=== PATIENT | female | born 1980 ===

== ENCOUNTER 2017-03-21 05:31 | Observation (INO) | payer OTHER ==
--- NOTE | 2017-03-20 21:36 | PDGENHP ---
History and Physical History and Physical: Assessment and Plan: 1. Dysmenorrhea Susie has a long history of pelvic pain and painful menses highly suggestive of endometriosis. Her intraoperative photos are suggestive of endometriosis as well as scarring. We previously discussed conservative and surgical options. She is scheduled for a robotic hysterectomy with excision of endometriosis and possible bilateral salpingo-oophorectomy. The risks benefits and alternatives were presented and informed consent was obtained. 2. Dyspareunia, female 3. Menorrhagia with regular cycle Subjective: Patient ID: Susie Allison is a 36 y.o. female who presents to [facility] for dysmenorrhea. MYKE Richards is a 36-year-old para 2 woman using vasectomy for contraception. She has a multiyear history of deep dyspareunia and dysmenorrhea. Her menses have always been painful. She was started on control pills at the age of 13. Currently her cycles are every 24-25 days. She will bleed 5-7 days. Her flow is somewhat normal however she passes clots. She has severe pelvic pain beginning the day before her flow and continues through cycle day 2. She also has severe pelvic pain with ovulation. The pain seems to be somewhat worse on the left than the right. It feels like a dull ache with sharp intense pains lasting from 2-24 hours. There is no radiation. In mid December she underwent a diagnostic laparoscopy. I have reviewed the intraoperative photos. The uterus is retroflexed. The anterior and posterior cul-de-sacs were not well photographed however there there appears to be significant contraction of the peritoneum in the posterior cul-de-sac and along the uterosacral ligaments highly suggestive of endometriosis. There appears to be a small lesion on the right ovary. The uterus appears to have adenomyosis with possible white endometriosis on the posterior surface. She has been seeing Dr. Prakash Prasadfor interstitial cystitis. She has been undergoing bladder instillations which appears to be helping she also is on Uriblel twice a day. She actually discontinued it about 10 days ago and so far is doing well. Alicias been suffering from her pain for many years. She has tried control pills which only mildly help her symptoms. She tried Lupron which she did not tolerate. She has completed her childbearing. Her symptoms and operative photos are highly suggestive of deep endometriosis especially in the posterior cul-de-sac,surrounding the cervix,and uterosacral ligaments. She also likely has adenomyosis. We reviewed all conservative and surgical options. At the end of our discussion she is interested in surgical management which will include a robotic hysterectomy, excision of all endometriosis, and likely BSO. She has no stress urinary incontinence. I will see her for a preoperative appointment. PastMedicalHistory Past Medical History: Diagnosis Date Breast disorder Right breast duct removed Chronic pelvic pain in female Dyspareunia in female Inflammation of bladder URINARY BLADDER SINCE Mandibular dysfunction TMJ Urinary tract infection Varicella PastSurgicalHistory Past Surgical History: Procedure Laterality Date ANTERIOR CRUCIATE LIGAMENT REPAIR Left 1995. 1999, 2003 CYST REMOVAL 1999 from nasal cavity NIPPLE DUCT EXCISION Right 07/05/2016 PELVIC LAPAROSCOPY rhinoplasty 2002 TONSILLECTOMY as child CURRENT MEDICATIONS: Current Outpatient Prescriptions Medication Sig BACILLUS COAGULANS/INULIN (PROBIOTIC WITH PREBIOTIC PO) BORIC ACID MISC Place 1 Dose rectally daily. HYDROcodone-acetaminophen (NORCO) 5-325 mg Take 1-2 tablets by mouth every 4 hours as needed (Moderate to Severe Pain) for Acute Pain. This med has acetaminophen (APAP). hydrOXYzine HCL (ATARAX) 10 mg tablet TK 1 T PO HS FOR 30 DAYS LACTOBACILLUS ACIDOPHILUS (PROBIOTIC PO) methen-sod phos-meth blue-hyos (URO-BLUE) 81.6-40.8-0.12 mg Tab Take 1 tablet by mouth 2 times daily. multivitamin (HEXAVITAMIN) per tablet Take 1 tablet by mouth daily. UNABLE TO FIND Place 1 Dose rectally every evening. VALIUM SUPPOSITORY NOT SURE OF DOSE UNKNOWN TO PATIENT Take 1 Dose by mouth daily. ANTIHISTAMINE No current facility-administered medications for this visit. ALLERGIES: No known drug allergies I have reviewed, verified and agree with the past medical, surgical, , family, social and ROS history as documented by the RN today. Objective: Vital Signs: Visit Vitals BP 102/66 Pulse 84 Temp 37.1 C (98.7 F) (Temporal Artery) Resp 16 Ht 1.822 m (5' 11.75") Wt 67.1 kg (148 lb) SpO2 98% BMI 20.21 kg/m Physical Exam Gen: This is an alert, well developed woman in no distress. Neuro: She moves all extremities. Psych: She is appropriate, oriented, with normal affect. Neck: No thyroid enlargement, adenopathy, or tenderness. Lungs: Clear to ascultation, no wheezes or rales. Heart: Regular rate and rhythm without obvious murmurs. Abdomen: Soft, non-tender, without guarding, rebound, or masses. Extremities: No edema or cyanosis. Pelvic: Normal external genitalia. Non-gaping introitus, vagina without discharge, adequately estrogenized, no significant prolapse. Cervix without lesions or discharge. Uterus normal sized, retroflexed with reduced mobility. She appears to have a tender nodule on the left uterosacral ligament near the cervix. The posterior cul-de-sac is tender. DATA: I have reviewed the pertinent medical records. TIME/COMMUNICATION: I personally spent a total of 60 minutes. Of that 40 minutes was counseling/ coordination of patient's care. See my note above for details. Laci Iglesias MD Board Certified Female Pelvic Medicine and Reconstructive Surgery Director of Minimally Invasive Gynecologic Surgery, [facility] Surgeon in Minimally Invasive Gynecologic Surgery [facility] Surgeon in Robotic Surgery
[2017-03-21] MEDS ORDERED: ceFAZolin 2 GM/SWFI 2 GM/20 ML SYR IVP ONE (06:14)
[2017-03-21] MEDS ORDERED: PHENAZOPYRIDINE HCL 100 MG TAB PO ONE (06:14)
[2017-03-21] MEDS ORDERED: LR 1,000 ML IV ONE (06:15)
[2017-03-21] MEDS ORDERED: LIDOCAINE 1% 2 ML INJ ID PRN (06:15)
[2017-03-21] MEDS ORDERED: PHENAZOPYRIDINE HCL 200 MG TAB ONE ×2 (06:27→06:48)
[2017-03-21] MEDS ORDERED: BUPIVACAINE 0.5% 30 ML SDV ONE (06:56)
[2017-03-21] MEDS ORDERED: PROPOFOL 200 MG/20 ML VIAL ONE (06:57)
[2017-03-21] MEDS ORDERED: MIDAZOLAM 2 MG/2 ML VIAL IVP ONE (06:57)
[2017-03-21] MEDS ORDERED: fentaNYL 100 MCG/2 ML INJ ONE ×4 (06:57→09:54)
--- NOTE | 2017-03-21 07:00 | PDANEPAE ---
ANE History of Present Illness Endometriosis ANE Past Medical History - Cardiovascular History Hx Hypertension: No Hx Arrhythmias: No Hx Chest Pain: No Hx Coronary Artery / Peripheral Vascular Disease: No Hx CHF / Valvular Disease: No Hx Palpitations: No - Pulmonary History Hx COPD: No Hx Asthma/Reactive Airway Disease: No Hx Recent Upper Respiratory Infection: No Hx Oxygen in Use at Home: No Hx Sleep Apnea: No Sleep Apnea Screening Result - Last Documented: Negative - Endocrine History Hx Diabetes: No - Renal History Hx Renal Disorders: Yes Renal History Comment: INTERSTIAL CYSTITIS - Liver History Hx Hepatic Disorders: No - Neurological & Psychiatric Hx Hx Neurological and Psychiatric Disorders: No - Cancer History Hx Cancer: No - Congenital Disorder History Hx Congenital Disorders: No - GI History Hx Gastrointestinal Disorders: No - Other Health History Other Health History: NONE - Chronic Pain History Chronic Pain: Yes (BLADDER,) - Surgical History Prior Surgeries: 2017,BREAST DUCTECTOMY. DIAGNOSTIC LAP ANE Review of Systems Review of Systems: - Exercise capacity METS (RN): 5 METS ANE Patient History - Allergies Allergies/Adverse Reactions: No Known Allergies Allergy (Verified 03/09/17 10:36) - Home Medications Home medications: home medication list seen and reviewed Home Medications: Herbals/Supplements -Info Only 1 ea PO DAILY 03/07/17 [Last Taken 03/16/17] Multivitamins [Multivitamin (*)] 1 each PO DAILY 03/07/17 [Last Taken 03/16/17] - Smoking Hx Smoking Status: Never smoked - Family Anes Hx Family Hx Anesthesia Complications: NONE ANE Labs/Vital Signs - Vital Signs Blood Pressure: 108/68 Heart Rate: 68 Respiratory Rate: 16 O2 Sat (%): 98 Height: 182.88 cm Weight: 65.771 kg ANE Physical Exam - Airway Neck exam: FROM Mallampati Score: Class 1 Mouth exam: normal dental/mouth exam - Pulmonary Pulmonary: no respiratory distress - Cardiovascular Cardiovascular: regular rate and rhythym - ASA Status ASA Status: II ANE Anesthesia Plan Anesthesia Plan: general endotracheal anesthesia
[2017-03-21] MEDS ORDERED: LIDOCAINE 2% 5 ML SDV ONE (07:40)
[2017-03-21] MEDS ORDERED: ROCURONIUM 50 MG/5 ML VIAL ONE ×2 (07:40→07:58)
[2017-03-21] MEDS ORDERED: DEXAMETHASONE 4 MG/ML VIAL ONE (07:40)
[2017-03-21] MEDS ORDERED: ONDANSETRON 4 MG/2 ML VIAL ONE (08:38)
[2017-03-21] MEDS ORDERED: SUGAMMADEX SODIUM 200 MG/2 ML VIAL IVP ONE (08:38)
[2017-03-21] MEDS ORDERED: HYDROmorphONE/DILAUDID 1 MG/ML INJ IVP PRN (08:57)
[2017-03-21] MEDS ORDERED: ONDANSETRON 4 MG/2 ML VIAL IVP PRN (08:57)
[2017-03-21] MEDS ORDERED: PROMETHAZINE HCL 25 MG/ML INJ IVP PRN ×2 (08:57→09:32)
[2017-03-21] MEDS ORDERED: NALOXONE HCL 0.4 MG/ML INJ IVP PRN (08:57)
--- NOTE | 2017-03-21 09:20 | POSTANESTH ---
Post Anesthetic Evaluation Cardiovascular Status: Normal, Stable Respiratory Status: Normal, Stable Level of Consciousness/Mental Status: Alert and Oriented, Mildly Sleepy, Arousable Pain Control: Adequate, Prn Tx Ordered Nausea/Vomiting Control: Adequate, Prn Tx Ordered Complications Possibly Related to Anesthesia: None Noted
[2017-03-21] MEDS ORDERED: DIAZEPAM 10 MG/2 ML SYR IVP PRN (09:32)
--- NOTE | 2017-03-21 09:32 | POSTOPPROG ---
Post Op Note Date of Operation: 03/21/17 Surgeon: Laci Iglesias Powder Guard: Radha Iraheta Anesthesia: GET(General Endotracheal) Pre-op Diagnosis: Dysmenorrhea, endometriosis Post-op Diagnosis: Same Procedure: Robotic hyst/LSO, bilat ureterolysis, excision of endo, cysto Findings: Endo, both ureters function at end of case Inf/Abcess present in the surg proc area at time of surgery?: No EBL: Minimal Complications: None Specimen(s): Uterus, bilat tubes, left ovary Peritoneum with endo
[2017-03-21] MEDS ORDERED: HYDROmorphONE/DILAUDID 1 MG/ML INJ ONE (09:44)
[2017-03-21] MEDS: HYDROmorphONE/DILAUDID 1 MG/ML INJ IVP PRN ×2 (09:45→11:02)
[2017-03-21] MEDS: fentaNYL 100 MCG/2 ML INJ IVP PRN ×2 (09:55→10:00)
[2017-03-21] MEDS ORDERED: LR 1,000 ML IV SCH (10:00)
[2017-03-21] MEDS: KETOROLAC 30 MG/1 ML SDV IVP SCH ×3 (10:06→21:55)
[2017-03-21] MEDS ORDERED: KETOROLAC 30 MG/1 ML SDV ONE (10:06)
[2017-03-21] MEDS ORDERED: DIAZEPAM 10 MG/2 ML SYR ONE (10:14)
--- NOTE | 2017-03-21 11:01 | GOP ---
[f rep st] OPERATIVE REPORT DATE OF OPERATION: 03/21/2017 SURGEON: Laci Iglesias MD FIELD ASSOCIATE: Radha Iraheta CFA ANESTHESIA: General. PREOPERATIVE DIAGNOSIS: 1. Dysmenorrhea. 2. Dyspareunia. 3. Endometriosis. 4. Uterine prolapse. 5. Interstitial cystitis. POSTOPERATIVE DIAGNOSIS: 1. Dysmenorrhea. 2. Dyspareunia. 3. Endometriosis. 4. Uterine prolapse. 5. Interstitial cystitis. PROCEDURE PERFORMED: 1. Robotic-assisted total laparoscopic hysterectomy, bilateral salpingectomy, left oophorectomy. 2. Bilateral ureterolysis. 3. Excision of extensive endometriosis. 4. Bilateral uterosacral ligament colpopexy. 5. Right ovariopexy. 6. Cystoscopy. FINDINGS: The patient had endometriosis in the posterior cul-de-sac, both uterosacral ligaments, bot h ovarian fossas, as well as minimal on the bladder. She had several superficial lesions on the ovar ies. SPECIMENS: Uterus, bilateral tubes, left ovary, and pelvic peritoneum with endometriosis. ESTIMATED BLOOD LOSS: Scant. DESCRIPTION OF PROCEDURE: The patient was taken to the operating room. She was identified. General anesthesia was administered and found to be adequate. She was placed in the lithotomy position and prepared and draped in normal sterile fashion. A Qnektare uterine manipulator was placed into the endom etrial cavity and sutured to the cervix. A Angelo catheter was then placed. A 1 cm infraumbilical incision was made with a scalpel. The Veress needle, with the CO2 gas flowing, was advanced into the peritoneal cavity. The abdomen was then insufflated with carbon dioxide gas. The 12 mm trocar, followed by the laparoscope, were then inserted. The upper abdomen was unremarkab le. There was no evidence of endometriosis on either diaphragm, liver, or stomach. Two lateral port s were placed on the right, and one on the left, under direct visualization. She then was placed in Trendelenburg position, and the da Lisa robot docked on the left side. The instruments were then br ought into the abdominal cavity under direct visualization. The left round ligament was divided. The anterior leaf of the broad ligament was incised to the bifu rcation of the left common iliac vessels. A window was created in the posterior leaf to skeletonize the infundibulopelvic vessels. They were then cauterized and transected. The anterior leaf of the b road ligament was then incised over the left uterine vessels and across the cervix. The bladder was gently dissected off the cervix and upper vagina. The entire ovarian fossa peritoneum was completely excised to remove the endometriosis. This require d a bilateral ureterolysis. The peritoneum at the pelvic brims were incised. The ureters were gentl y dissected free. They were lateralized from the pelvic brim all the way down to the bladder, off th e overlying peritoneum and endometriosis. Once this was accomplished, both ovarian fossa peritoneum were completely excised. The entire posterior cul-de-sac peritoneum was also excised from the distal rectum up to the cervix and laterally to include both uterosacral ligaments. The right fallopian tube was then along the mesosalpinx. The utero-ovarian ligament, follo wed by the round ligament, were then cauterized and transected. The bladder was further dissected of f on the right side. A circumferential colpotomy incision was then made with the hot lena. All sp ecimens were then removed through the vagina. The anterior cul-de-sac peritoneum was incised, includ ing a portion over the bladder. The vaginal cuff was then closed with a running suture of 0 V-Loc 18 0. A bilateral uterosacral ligament colpopexy was performed by attaching the lateral aspects of the vaginal cuff to the ipsilateral uterosacral ligaments near their insertion into the coccygeus-sacrosp inous ligament complexes. This was performed using 0 Ethibond suture. The pelvis was then copiously irrigated with sterile saline. Hemostasis was present. A right ovariopexy was performed by attachi ng the right ovary to the ipsilateral round ligament near the internal inguinal ring with 3-0 Vicryl suture. The robot was then undocked. The fascia was closed with 0 Vicryl, skin with 4-0 Monocryl an d surgical adhesive. Cystoscopy was performed. Both ureters had vigorous jets of urine. There was no evidence of bladder nor urethral injury seen. There was one Hunner ulcer at the dome of the bladder. No other patholog y was seen. Anesthesia was then reversed and the patient taken the PACU awake, in stable condition. COMPLICATIONS: None. DISPOSITION: Patient stable to PACU. /[id number]/MODL
[2017-03-21] MEDS: SIMETHICONE 80 MG TAB CHEW PO SCH (12:30)
[2017-03-21] MEDS: HYDROCODONE/APAP 5/325 TAB PO PRN ×3 (12:31→21:30)
[2017-03-21] MEDS: DOCUSATE SODIUM 100 MG CAP PO SCH (17:30)
[2017-03-21] MEDS: ONDANSETRON 4 MG/2 ML VIAL IVP PRN (19:23)
[2017-03-22] MEDS: HYDROCODONE/APAP 5/325 TAB PO PRN ×3 (02:16→12:58)
[2017-03-22] MEDS: DOCUSATE SODIUM 100 MG CAP PO SCH ×2 (02:16→08:53)
[2017-03-22] MEDS: SIMETHICONE 80 MG TAB CHEW PO SCH ×2 (03:11→12:09)
[2017-03-22] MEDS: KETOROLAC 30 MG/1 ML SDV IVP SCH (04:00)
[2017-03-22 07:19] LABS: HEMATOCRIT 35.5 % (38.0-47.0); HEMOGLOBIN 12.1 g/dL (12.6-16.3)
[2017-03-22] MEDS: ONDANSETRON 4 MG/2 ML VIAL IVP PRN (10:00)
[2017-03-22 10:21] VITALS: BP 89/57; PULSE 79; RESP 16; TEMP 98.7; O2SAT 95
--- NOTE | 2017-03-22 17:59 | GDS ---
[f rep st] DISCHARGE SUMMARY DISCHARGE DIAGNOSES: 1. Endometriosis. 2. Dysmenorrhea. 3. Dyspareunia. 4. Uterine prolapse. PROCEDURES: 1. Robotic-assisted total laparoscopic hysterectomy, bilateral salpingectomy, left oophorectomy. 2. Bilateral ureterolysis. 3. Bilateral uterosacral ligament colpopexy. 4. Excision of endometriosis. 5. Cystoscopy. 6. Right ovarian pexy. HISTORY: The patient is a 36-year-old female with a long history of painful menses and dyspareunia. She was taken the operating room on 03/21/2017, where she underwent the above-mentioned procedures w ithout complications. Her postoperative course was uneventful. The morning after surgery she was ambulating, voiding, and tolerating a general diet. She was discharged home with ibuprofen and Vicodin for pain. She is to valencia mendez up in the office 6 weeks after discharge. /[id number]/MODL
== END 2017-03-22 13:30 | disposition home or self-care (01) ==
LOC: F3E 05:31 → FOB 10:31
PROVIDERS: ADMIT Obstetrics & Gynecology; ATTEND Obstetrics & Gynecology
PROC: 0TJ98ZZ Inspection of Ureter, Via Natural or Artificial Opening Endoscopic (ICD-10-PCS; principal; 2017-03-21 07:15)
PROC: 0UTC0ZZ Resection of Cervix, Open Approach (ICD-10-PCS; principal; 2017-03-21 07:15)
PROC: 0UT1FZZ Resection of Left Ovary, Via Natural or Artificial Opening With Percutaneous Endoscopic Assistance (ICD-10-PCS; principal; 2017-03-21 07:15)
PROC: 0UT7FZZ Resection of Bilateral Fallopian Tubes, Via Natural or Artificial Opening With Percutaneous Endoscopic Assistance (ICD-10-PCS; principal; 2017-03-21 07:15)
PROC: 8E0W4CZ Robotic Assisted Procedure of Trunk Region, Percutaneous Endoscopic Approach (ICD-10-PCS; principal; 2017-03-21 07:15)
PROC: 0US Female Reproductive System, Reposition (ICD-10-PCS; principal; 2017-03-21 07:15)
PROC: 0UT9FZZ Resection of Uterus, Via Natural or Artificial Opening With Percutaneous Endoscopic Assistance (ICD-10-PCS; principal; 2017-03-21 07:15)
PROC: 0UQG7ZZ Repair Vagina, Via Natural or Artificial Opening (ICD-10-PCS; principal; 2017-03-21 07:15)
DX: N80.3 Endometriosis of pelvic peritoneum (principal); N81.4 Uterovaginal prolapse, unspecified; N30.10 Interstitial cystitis (chronic) without hematuria; N94.10 Unspecified dyspareunia; Z87.440 Personal history of urinary (tract) infections
CPT/HCPCS: 57283; 58571; G0378; J0690; J1100; J1170; J1885; J2250; J2405; J2704; J3010